=== PATIENT | female | born 1990 | race Two or more races ===

== ENCOUNTER 2017-10-20 17:25 | Emergency (ER) | payer OTHER, MEDICAID ==
[~2017-10-20] VITALS: Ht 162.6 cm; Wt 72.0 kg
[2017-10-20 17:29] VITALS: BP 103/69
== END 2017-10-20 21:40 | disposition left against medical advice (07) ==
LOC: ER 20:35
DX: R07.9 Chest pain, unspecified (principal)
CPT/HCPCS: 99281